=== PATIENT | male | born 1940 | race Caucasian/White ===

== ENCOUNTER 2019-06-08 07:39 | Day surgery (SDC) | payer MEDICARE, BC ==
[2019-06-07 14:14] LABS: BASOPHILS 0.3 % (0-2); EOSINOPHILS 4.5 % (0-7); HEMOGLOBIN 14.3 g/dL (13.5-17.5); IMMATURE GRANULOCYTES 0.2 % (0-5); MCH 30.8 pg (26.0-34.0); MCV 90.3 fL (80.0-100.0); MEAN PLATELET VOLUME 10.6 fL (7.4-10.4); MONOCYTES 8.9 % (2-11); NEUTROPHILS 57.1 % (40-80); RBC 4.65 10x6/uL (4.20-6.10); RDW 14.5 % (11.5-14.5)
[2019-06-07 14:15] LABS: PLATELET COUNT 156 10x3/uL (130-400)
[2019-06-07 14:21] LABS: CALCIUM 8.9 mg/dL (8.5-10.1); CARBON DIOXIDE 26.5 mmol/L (21.0-32.0); CREATININE - SERUM 1.6 mg/dL (0.6-1.3); POTASSIUM - SERUM 4.5 mmol/L (3.5-5.1)
[~2019-06-08] VITALS: Ht 182.9 cm; Wt 113.4 kg
[~2019-06-08 07:39] MED LIST: BAYER ASPIRIN325 MG; FLOMAX0.4 MG PO; LISINOPRIL20 MG; LOPRESSOR25 MG PO; PEPCID AC20 MG PO; TRICOR145 MG; ZYLOPRIM100 MG PO
[2019-06-08] MEDS ORDERED: GLUCOTROL 5 MG T5 MG PO (08:14)
[2019-06-08 08:20] VITALS: BP 164/48; Ht 182.9 cm; Wt 113.4 kg
--- NOTE | 2019-06-08 12:25 | NUR ---
OPA IN AIRWAY ON ADMIT
--- NOTE | 2019-06-08 12:27 | OP ---
PATIENT NAME: ED JOSE MEDICAL RECORD: [id number] :36 LOCATION:[facility] ADMISSION DATE: SURGEON: ELINA EDWARDS MD DATE OF OPERATION: 06/08/2019 SURGEON: Elina Edwards MD ANESTHESIA: TIVA by Irene Mccrary CRNA. 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 IPSS 24, quality of life score is 5. Postvoid residual is 44 mL. PROCEDURE: UroLift times 4. FINDINGS: Obstructive lateral lobes. Trabeculated bladder without bladder tumors. Single ureteral orifices bilaterally. ESTIMATED BLOOD LOSS: None. CLINICAL HISTORY: This is an 78-year-old male, who has a complaint of urge urinary incontinence with nocturia times 7-12 and daytime frequency every [address] Sparks and he was placed on Flomax. This made him dizzy and the Flomax did improve the urine flow. He wishes to have the UroLift procedure done. HE IS ALLERGIC TO PENICILLIN. He was given Levaquin IV orthodontic lab technician to the OR. DESCRIPTION OF PROCEDURE: The patient was given IV sedation. He was then placed into the lithotomy position and prepped and draped. The UroLift scope was introduced. Findings are as outlined above. Then, 1.5 cm distal to the bladder neck at the anterolateral sulcus of the lateral lobes, 1 unit was placed on each side. At the level of the verumontanum, 1 unit was placed on each side at the level of the anterolateral sulcus. This opened up the urethral channel quite nicely. The bladder was left partly filled with irrigation fluid for a voiding trial. I will see him in followup in 1 months' time. TRANSINT:[id number] Voice Confirmation ID: [id number] DOCUMENT ID: [id number] ELINA EDWARDS MD at 1227 CC: [id number] DICTATION DATE: 06/08/19 1216 FIRE INSPECTOR: 06/08/19 1225 [facility] [address] [id number]
--- NOTE | 2019-06-08 13:40 | NUR ---
REC'D FROM RR. FAMILY AT BEDSIDE. AMBULATED TO THE BATHROOM AND VOIDED WITHOUT DIFFICULTY.
--- NOTE | 2019-06-08 14:30 | NUR ---
TOLERATED FL DIET. IV DC'D WITH CATHETER INTACT.
--- NOTE | 2019-06-08 14:35 | NUR ---
WRITTEN AND VERBAL DC INST. GIVEN TO PT. VERBALIZED UNDERSTANDING.
--- NOTE | 2019-06-08 14:45 | NUR ---
DC'D HOME WITH FAMILY VIA PRIVATE VEHICLE. STABLE AT TIME OF DC.
== END 2019-06-08 14:45 | disposition home or self-care (01) ==
LOC: D.OPS 07:39 → D.PAN 08:45 → D.OPS 08:45 → D.PAN 10:15 → D.OPS 10:30 → D.PAN 10:45 → D.OPS 14:45
PROVIDERS: Anesthesiology; ATTEND Urology
DX: N40.1 Benign prostatic hyperplasia with lower urinary tract symptoms (principal); N13.8 Other obstructive and reflux uropathy; N32.89 Other specified disorders of bladder; Z01.812 Encounter for preprocedural laboratory examination